=== PATIENT | female | born 1940 | race African-American/Black ===

== ENCOUNTER → 2018-01-19 | Outpatient (CLI) | payer MEDICARE, OTHER ==
[~2018-01-19] MED LIST: ADULT LOW DOSE81 MG PO; BENICAR40 MG PO; BYSTOLIC20 MG PO; CRESTOR10 MG PO; DOCUSATE SODIU100 MG PO; HYDROCHLOROTH12.5 MG PO; KEPPRA 500 MG500 M1 PO; KEPPRA250 MG PO; LORAZEPAM I2 MG/1 M2 IV; LOVENOX SQ; PROTONIX40 M2 PO; ZOFRAN 4 MG ORAL4 M1 PO; ZYPREXA2.5 MG PO
== END | disposition home or self-care (01) ==
LOC: M.ULTRA 08:01
DX: E04.1 Nontoxic single thyroid nodule (principal); Z88.0 Allergy status to penicillin; Z79.82 Long term (current) use of aspirin; Z79.899 Other long term (current) drug therapy; Z98.890 Other specified postprocedural states